=== PATIENT | female | born 2000 | race Caucasian/White ===

== ENCOUNTER 2020-04-02 14:05 | Outpatient (CLI) | payer OTHER | END 2020-04-02 14:06 | disposition home or self-care (01) | LOC: COV 14:05 | PROVIDERS: ATTEND Family Medicine | DX: R06.02 Shortness of breath (principal); M79.10 Myalgia, unspecified site; R53.83 Other fatigue; R68.83 Chills (without fever); J02.9 Acute pharyngitis, unspecified; R19.7 Diarrhea, unspecified; R11.2 Nausea with vomiting, unspecified; Z20.828 Contact with and (suspected) exposure to other viral communicable diseases ==

== ENCOUNTER 2020-05-13 07:10 | Emergency (ER) | payer OTHER ==
[2020-05-13 07:23] VITALS: BP 151/132
[2020-05-13] MEDS ORDERED: ACETAMINOPHEN 325 MG TABLET PO STA (07:24)
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
--- NOTE | 2020-05-13 08:15 | CT Report ---
PROCEDURE: HEAD WO INDICATIONS: head injury, nausea TECHNIQUE: Noncontrast 4.5 mm thick angled axial sections acquired from the foramen magnum to the vertex. For r adiation dose reduction, the following was used: automated exposure control, adjustment of mA and/or kV according to patient size. COMPARISON: None. FINDINGS: Image quality: Excellent. CSF spaces: Basal cisterns are patent. No extra-axial fluid collections. Ventricles are normal in size and shape. Brain: No midline shift. No intracranial masses or hemorrhage. Landry-white matter interface is norm al. Skull and face: Calvarium and visualized facial bones are intact, without suspicious lesions. Sinuses: Visualized sinuses and mastoids are clear. IMPRESSION: CT head without acute intracranial abnormalities. Reviewed by: Beka Burgess MD on 05/13/2020 8:14 AM PDT Approved by: Beka Burgess MD on 05/13/2020 8:14 AM PDT Station ID: [id number]
== END 2020-05-13 08:19 | disposition home or self-care (01) ==
LOC: ED 07:10
DX: S09.90XA Unspecified injury of head, initial encounter (principal); Y04.2XXA Assault by strike against or bumped into by another person, initial encounter; Y93.F9 Activity, other caregiving; Y92.129 Unspecified place in nursing home as the place of occurrence of the external cause; Y99.0 Civilian activity done for income or pay
CPT/HCPCS: 1040M; 70450; 99284; A9270